=== PATIENT | female | born 1965 | race Caucasian/White ===

== ENCOUNTER 2019-07-19 19:43 | Emergency (ER) | payer OTHER ==
[~2019-07-19] VITALS: Ht 165.1 cm; Wt 104.0 kg
[2019-07-19] MEDS ORDERED: IV NORMAL SALINE 1000ML BAG 1,000 ML IV ONE (20:15)
[2019-07-19 20:16] LABS: BASO % 1 % (0-3); EOS # 0.3 x10^3/uL (0.0-0.7); EOS % 6 % (0-3); HEMATOCRIT 39.5 % (36.0-47.0); HEMOGLOBIN 13.1 g/dL (12.0-15.5); LYMPH % 38 % (24-48); MEAN CORPUSCULAR HEMOGLOBIN 30 pg (25-35); MEAN CORPUSCULAR HGB CONC 33 g/dL (31-37); MEAN CORPUSCULAR VOLUME 91 fL (79-100); MONO # 0.4 x10^3/uL (0.0-1.1); MONO % 7 % (0-9); NEUT # 2.5 x10^3/uL (1.8-7.7); NEUT % 49 % (31-73); PLATELET COUNT 262 x10^3/uL (140-400); RED BLOOD COUNT 4.32 x10^6/uL (3.50-5.40); RED CELL DISTRIBUTION WIDTH 14.3 % (11.5-14.5); WHITE BLOOD COUNT 5.2 x10^3/uL (4.0-11.0)
[2019-07-19 20:18] LABS: BILIRUBIN,URINE NEGATIVE (NEG); CLARITY,URINE CLEAR; COLOR,URINE YELLOW; NITRITE,URINE NEGATIVE (NEG); PROTEIN,URINE NEGATIVE (NEG-TRACE); UROBILINOGEN,URINE 0.2 mg/dL (0.2 mg/dL)
[2019-07-19 20:24] LABS: BARBITURATES NEG (NEG); BENZODIAZEPINES POS (NEG); CANNABINOIDS NEG (NEG); COCAINE NEG (NEG); METHADONE NEG (NEG); OPIATES NEG (NEG); PHENCYCLIDINE NEG (NEG)
[2019-07-19 20:25] LABS: AMORPHOUS SEDIMENT,UR PRESENT /HPF; BACTERIA,URINE 0 /HPF (0-FEW); HYALINE CASTS, URINE MODERATE /HPF; SQUAMOUS EPITHELIAL CELL,UR FEW /LPF
[2019-07-19 20:29] LABS: AMPHETAMINE/METHAMPHETAMINE NEG (NEG)
[2019-07-19 20:30] LABS: CALCIUM 8.2 mg/dL (8.5-10.1); CREATININE 0.8 mg/dL (0.6-1.0); GFR 74.5; POTASSIUM 4.7 mmol/L (3.5-5.1)
[2019-07-19 20:36] LABS: ALBUMIN 3.3 g/dL (3.4-5.0); ALBUMIN/GLOBULIN RATIO 1.3 (1.0-1.7); MAGNESIUM 2.6 mg/dL (1.8-2.4); TOTAL BILIRUBIN 0.2 mg/dL (0.2-1.0); TOTAL PROTEIN 5.9 g/dL (6.4-8.2)
[2019-07-19 20:37] LABS: ACETAMIN < 2 mcg/ml (10-30); ETHANOL 174 mg/dL (0-10); SALIC < 2.8 mg/dL (2.8-20.0)
[2019-07-19 20:44] LABS: CREATINE KINASE 60 U/L (26-192)
--- NOTE | 2019-07-19 20:56 | PHYS DOC ---
Past Medical History Past Medical History: Unknown (ANTHONY SCHMIDT APRN) Smoking Status: Unknown if ever smoked Alcohol Use: None (ANTHONY SCHMIDT APRN) Attending Signature I have participated in the care of this patient and I have reviewed and agree with all pertinent clinical information above including history, exam, and recommendations. (KENISHA KUMAR MD) Adult General Chief Complaint Chief Complaint: SUICDAL IDEATION HPI HPI Patient is a 54 year old female with a known psychological issues who presents to the ED today to be evaluated after taking unknown amount of Eszopiclone 3 mg prescribed to her for insomnia. who called 911 is not in the ED. Most of the information I have is from the nursing staff. They report patient was doing dishes in the kitchen and may be had unwitnessed seizure and was altered. Patient is not giving us much information. (ANTHONY SCHMIDT APRN) Review of Systems Review of Systems Constitutional: Denies fever or chills [] Eyes: Denies change in visual acuity, redness, or eye pain [] HENT: Denies nasal congestion or sore throat [] Respiratory: Denies cough or shortness of breath [] Cardiovascular: No additional information not addressed in HPI [] GI: Denies abdominal pain, nausea, vomiting, bloody stools or diarrhea [] : Denies dysuria or hematuria [] Musculoskeletal: Denies back pain or joint pain [] Integument: Denies rash or skin lesions [] Neurologic: Denies headache, focal weakness or sensory changes [] Endocrine: Denies polyuria or polydipsia [] All other systems were reviewed and found to be within normal limits, except as documented in this note. (ANTHONY SCHMIDT APRN) Current Medications Current Medications Current Medications Medications (Trade) Dose Ordered Sig/Gricelda Start Time Stop Time Status Last Admin Dose Admin Acetaminophen (Tylenol) 500 mg 1X ONCE 07/19/19 23:30 07/19/19 23:22 DC 07/19/19 23:13 500 MG Sodium Chloride 1,000 ml @ 1,000 mls/hr 1X ONCE 07/19/19 20:15 07/19/19 21:14 DC 07/19/19 20:14 1,000 MLS/HR (KENISHA KUMAR MD) Allergies Allergies Allergies Coded Allergies Type Severity Reaction Last Updated Verified Sulfa (Sulfonamide Antibiotics) Allergy Severe 07/19/19 Yes povidone-iodine Allergy Mild 07/19/19 Yes soap Allergy Mild 07/19/19 Yes (KENISHA KUMAR MD) Physical Exam Physical Exam Constitutional: Well developed, well nourished, no acute distress, non-toxic appearance. [] HENT: Normocephalic, atraumatic, bilateral external ears normal, oropharynx moist, no oral exudates, nose normal. [] Eyes: PERRLA, EOMI, conjunctiva normal, no discharge. [] Neck: Normal range of motion, no tenderness, supple, no stridor. [] Cardiovascular:Heart rate regular rhythm, no murmur [] Lungs & Thorax: Bilateral breath sounds clear to auscultation [] Abdomen: Bowel sounds normal, soft, no tenderness, no masses, no pulsatile masses. [] Skin: Warm, dry, no erythema, no rash. [] Back: No tenderness, no CVA tenderness. [] Extremities: No tenderness, no cyanosis, no clubbing, ROM intact, no edema. [] Neurologic: Alert and oriented X 3, normal motor function, normal sensory function, no focal deficits noted. [] Psychologic: Flat affect. Chooses when to answer questions (ANTHONY SCHMIDT APRN) Current Patient Data Vital Signs Vital Signs Date Time Temp Pulse Resp B/P (MAP) Pulse Ox O2 Delivery O2 Flow Rate FiO2 07/19/19 23: 97.7 71 18 135/80 (98) 97 Room Air 97.7 (KENISHA KUMAR MD) Lab Values Laboratory Tests Test 07/19/19 19:53 07/19/19 20:02 07/19/19 20:23 White Blood Count 5.2 x10^3/uL (4.0-11.0) Red Blood Count 4.32 x10^6/uL (3.50-5.40) Hemoglobin 13.1 g/dL (12.0-15.5) Hematocrit 39.5 % (36.0-47.0) Mean Corpuscular Volume 91 fL (79-100) Mean Corpuscular Hemoglobin 30 pg (25-35) Mean Corpuscular Hemoglobin Concent 33 g/dL (31-37) Red Cell Distribution Width 14.3 % (11.5-14.5) Platelet Count 262 x10^3/uL (140-400) Neutrophils (%) (Auto) 49 % (31-73) Lymphocytes (%) (Auto) 38 % (24-48) Monocytes (%) (Auto) 7 % (0-9) Eosinophils (%) (Auto) 6 % (0-3) H Basophils (%) (Auto) 1 % (0-3) Neutrophils # (Auto) 2.5 x10^3/uL (1.8-7.7) Lymphocytes # (Auto) 2.0 x10^3/uL (1.0-4.8) Monocytes # (Auto) 0.4 x10^3/uL (0.0-1.1) Eosinophils # (Auto) 0.3 x10^3/uL (0.0-0.7) Basophils # (Auto) 0.0 x10^3/uL (0.0-0.2) Sodium Level 147 mmol/L (136-145) H Potassium Level 4.7 mmol/L (3.5-5.1) Chloride Level 110 mmol/L (98-107) H Carbon Dioxide Level 30 mmol/L (21-32) Anion Gap 7 (6-14) Blood Urea Nitrogen 14 mg/dL (7-20) Creatinine 0.8 mg/dL (0.6-1.0) Estimated GFR (Cockcroft-Gault) 74.5 BUN/Creatinine Ratio 18 (6-20) Glucose Level 91 mg/dL (70-99) Calcium Level 8.2 mg/dL (8.5-10.1) L Magnesium Level 2.6 mg/dL (1.8-2.4) H Total Bilirubin 0.2 mg/dL (0.2-1.0) Aspartate Amino Transferase (AST) 19 U/L (15-37) Alanine Aminotransferase (ALT) 23 U/L (14-59) Alkaline Phosphatase 78 U/L (46-116) Creatine Kinase 60 U/L (26-192) Creatine Kinase MB (Mass) < 0.5 ng/mL (0.0-3.6) Creatine Kinase MB Relative Index % (0-4) Troponin I Quantitative < 0.017 ng/mL (0.000-0.055) IT-Geb-M-Type Natriuretic Peptide 264 pg/mL (0-124) H Total Protein 5.9 g/dL (6.4-8.2) L Albumin 3.3 g/dL (3.4-5.0) L Albumin/Globulin Ratio 1.3 (1.0-1.7) Lipase 150 U/L (73-393) Salicylates Level < 2.8 mg/dL (2.8-20.0) L Salicylate Last Dose Date Unknown Salicylate Last Dose Time Unknown Acetaminophen Level < 2 mcg/ml (10-30) L Acetaminophen Last Dose Date Unknown Acetaminophen Last Dose Time Unknown Ethyl Alcohol Level 174 mg/dL (0-10) H Urine Collection Type U cath Urine Color Yellow Urine Clarity Clear Urine pH 7.0 (<5.0-8.0) Urine Specific [place] 1.015 (1.000-1.030) Urine Protein Negative mg/dL (NEG-TRACE) Urine Glucose (UA) Negative mg/dL (NEG) Urine Ketones (Stick) Negative mg/dL (NEG) Urine Blood Trace (NEG) Urine Nitrite Negative (NEG) Urine Bilirubin Negative (NEG) Urine Urobilinogen Dipstick 0.2 mg/dL (0.2 mg/dL) Urine Leukocyte Esterase Trace (NEG) Urine RBC 6-10 /HPF (0-2) Urine WBC 1-4 /HPF (0-4) Urine Squamous Epithelial Cells Few /LPF Urine Amorphous Sediment Present /HPF Urine Bacteria 0 /HPF (0-FEW) Urine Hyaline Casts Moderate /HPF Urine Mucus Mod /LPF Urine Opiates Screen Neg (NEG) Urine Methadone Screen Neg (NEG) Urine Barbiturates Neg (NEG) Urine Phencyclidine Screen Neg (NEG) Urine Amphetamine/Methamphetamine Neg (NEG) Urine Benzodiazepines Screen Pos (NEG) Urine Cocaine Screen Neg (NEG) Urine Cannabinoids Screen Neg (NEG) Urine Ethyl Alcohol Pos (NEG) Lactic Acid Level 1.0 mmol/L (0.4-2.0) Laboratory Tests 07/19/19 19:53 Laboratory Tests 07/19/19 19:53 (KENISHA KUMAR MD) EKG [facility] 69 no STEMI[] (ANTHONY SCHMIDT APRN) Radiology/Procedures Radiology/Procedures []PROCEDURE: CHEST AP ONLY Exam: Chest one view INDICATION: Altered mental status TECHNIQUE: Frontal view of the chest Comparisons: None FINDINGS: The cardiomediastinal silhouette and pulmonary vessels are within normal limits. The lung and pleural spaces are clear. IMPRESSION: No acute cardiopulmonary process. Electronically signed by: Alessandra Spence MD (07/19/2019 9:11 PM) [id number] DICTATED and SIGNED BY: ALESSANDRA SPENCE MD DATE: 07/19/192110 PROCEDURE: CT HEAD WO CONTRAST STUDY: CT head without contrast INDICATION: Altered mental status. COMPARISON: None. TECHNIQUE: Axial CT imaging through the head without the use of intravenous contrast. Sagittal and coronal reformats were obtained. One or more of the following individualized dose reduction techniques were utilized for this examination: 1. Automated exposure control 2. Adjustment of the mA and/or kV according to patient size 3. Use of iterative reconstruction technique. FINDINGS: No acute intracranial hemorrhage no mass effect, midline shift or hydrocephalus. Slight heterogeneous attenuation of the bihemispheric subcortical white matter which is nonspecific but could represent the sequela of mild chronic microvascular ischemic change. Unremarkable scalp and orbits. Intact calvarium. Paranasal sinus mucosal thickening involving the maxillary sinuses and ethmoidal air cells to the greatest degree. No layering fluid is identified. Normally aerated mastoid air cells and middle ears. IMPRESSION: 1. No acute intracranial abnormality by CT. 2. Paranasal sinus mucosal thickening but without visualized layering fluid. Recommend correlation for any symptoms that would suggest sinusitis. Electronically signed by: DENYS BUSTAMANTE MD (07/19/2019 8:52 PM) [id number] DICTATED and SIGNED BY: DEYNS BUSTAMANTE MD DATE: 07/19/192051 (ANTHONY SCHMIDT APRN) Course & Med Decision Making Course & Med Decision Making Pertinent Labs and Imaging studies reviewed. (See chart for details) This is a 54-year-old female patient who presents to the ED today to be e valuated after initially being reported to have taken Eszopiclone her sleeping pill unknown amount. Then it was reported she had a seizure. Kia RINCON contacted poison control. CT of the head is negative for any acute findings, EKG was negative, chest x-ray is negative, CBC, CMP, lipase-no acute findings, alcohol level 174, drug screen also noted for benzodiazepines. Lactic is normal-she likely did not have a seizure I was called into the room to talk to patient and because patient nafisa arently does not recall the . When I arrived in the room patient and were carrying on a normal conversation as and . 2139- appears very drunk, he states patient was doing dishes in the kitchen and passed out. On questioning both of them if they were drinking, they reports they were drinking vodka before patient went to do dishes. Patient at some point was stating he doesn't know who the is but she is carrying on a conversations with him very well like and . I even reported I called the PAT team to address her drinking psych issues. states patient deals with stress by drinking and does not need any rehab or help with drinking she can stop drinking tomorrow. 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 states patient has an appointment with the TBI clinic this week. D/c to home (ANTHONY SCHMIDT APRN) Dragon Disclaimer Dragon Disclaimer This electronic medical record was generated, in whole or in part, using a voice recognition dictation system. (ANTHONY SCHMIDT APRN) Departure Departure Impression: Primary Impression: ETOHism Additional Impression: Fall Disposition: 01 HOME, SELF-CARE Condition: STABLE Referrals: UNKNOWN PCP NAME (PCP) Please follow up with [facility] clinic at [facility] and your primary care doctor and psychiatrist as soon as you can. Patient Instructions: Alcohol Intoxication, [id number] Additional Instructions: Please follow up with TBI clinic at [facility] and your primary care doctor and psychiatrist as soon as you can. Consider getting help for alcohol abuse Problem Qualifiers Additional Impression: Fall Encounter type: initial encounter Qualified Codes: W19.XXXA - Unspecified fall, initial encounter ANTHONY SCHMIDT APRN Jul 19, 2019 20:56 KENISHA KUMAR MD Jul 20, 2019 01:51
--- NOTE | 2019-07-19 21:13 | RAD ---
Exam: Chest one view INDICATION: Altered mental status TECHNIQUE: Frontal view of the chest Comparisons: None FINDINGS: The cardiomediastinal silhouette and pulmonary vessels are within normal limits. The lung and pleural spaces are clear. IMPRESSION: No acute cardiopulmonary process. Electronically signed by: Alessandra Grider MD (07/19/2019 9:11 PM) [id number]
--- NOTE | 2019-07-19 21:15 | EKG ---
[address] [place] [address] Test Date: 2019-07-19 Test Time: 19:50:29 Pat Name: CAREY NICOLE Department: Room: Gender: F [employer] Grader: : 1965 Requested By: ANTHONY SCHMIDT Order Number: [id number] Reading MD: Measurements Intervals [place] Rate: 69 P: 42 [place]: 160 QRS: 43 QRSD: 86 T: 53 QT: 442 QTc: 475 Interpretive Statements SINUS RHYTHM PROLONGED QT NO SPECIFIC ECG ABNORMALITIES RI6.01 No previous ECG available for comparison
[2019-07-19 23:20] VITALS: BP 135/80
[2019-07-19] MEDS ORDERED: ACETAMINOPHEN 500 MG TABLET PO ONE (23:30)
== END 2019-07-19 23:21 | disposition home or self-care (01) ==
LOC: ER 19:43
DX: F10.229 Alcohol dependence with intoxication, unspecified (principal); R56.9 Unspecified convulsions; Z88.2 Allergy status to sulfonamides; Z88.1 Allergy status to other antibiotic agents; Z88.8 Allergy status to other drugs, medicaments and biological substances
CPT/HCPCS: 36415; 70450; 71045; 80053; 80307; 80329; 81001; 82553; 83605; 83690; 83735; 83880; 84484; 85025; 93005; 96360; 99285; G0480; J7030